=== PATIENT | male | born 1990 | race Caucasian/White ===

== ENCOUNTER 2022-09-20 10:03 | Emergency (ER) | payer MEDICAID ==
[~2022-09-20] VITALS: Ht 177.8 cm; Wt 95.0 kg
[2022-09-20 10:08] VITALS: BP 156/72
[2022-09-20] MEDS ORDERED: NALO4SPR BOTHNSTRLS (10:37)
[2022-09-21] MEDS ORDERED: SULF1TAB48 PO (06:54)
[2022-09-21] MEDS ORDERED: CEPH500C2 PO (06:54)
[2022-09-21] MEDS ORDERED: TOPUD PO (06:54)
== END 2022-09-20 11:36 | disposition home or self-care (01) ==
LOC: EDBD 10:03 → ER 10:03
DX: M79.672 Pain in left foot (principal); M79.671 Pain in right foot; F15.10 Other stimulant abuse, uncomplicated; F11.10 Opioid abuse, uncomplicated; R03.0 Elevated blood-pressure reading, without diagnosis of hypertension
CPT/HCPCS: 99283

== ENCOUNTER 2022-09-21 01:02 | Emergency (ER) | payer MEDICAID, OTHER ==
[~2022-09-21] VITALS: Ht 193 cm; Wt 95.2 kg
[~2022-09-21 01:02] MED LIST: NALO4SPR BOTHNSTRLS
[2022-09-21 01:11] VITALS: BP 149/88
[2022-09-21] MEDS ORDERED: ACETAMINOPHEN 325MG TABLET PO ONE (06:00)
[2022-09-21] MEDS ORDERED: CEPH500C2 PO (06:54)
[2022-09-21] MEDS ORDERED: SULF1TAB48 PO (06:54)
[2022-09-21] MEDS ORDERED: TOPUD PO (06:54)
[2022-09-21] MEDS ORDERED: ACETAMINOPHEN 325MG TABLET PO SCH (08:00)
== END 2022-09-21 08:00 | disposition home or self-care (01) ==
LOC: ER 01:18
DX: B34.9 Viral infection, unspecified (principal); L03.317 Cellulitis of buttock; L02.31 Cutaneous abscess of buttock; Z20.822 Contact with and (suspected) exposure to COVID-19
CPT/HCPCS: 76604; 87426; 87804; 99284; C9803